=== PATIENT | female | born 1950 ===

== ENCOUNTER 2023-06-29 06:55 | Day surgery (SDC) | payer OTHER ==
[~2023-06-29] VITALS: Ht 160 cm; Wt 63.5 kg
[~2023-06-29 06:55] MED LIST: FOSAMAX70 MG PO; HYZAAR 50-12.51 EACH PO; MULTIPLE VITAM1 EAC2 PO
[2023-06-29] MEDS ORDERED: DUI500 PO (15:45)
[2023-06-29] MEDS ORDERED: OXYC1TAB9 PO (15:45)
== END 2023-06-29 19:35 | disposition home or self-care (01) ==
LOC: CIR.AMB 06:55
PROVIDERS: ATTEND Orthopaedic Surgery Sports Medicine
DX: S86.011A Strain of right Achilles tendon, initial encounter (principal); M76.61 Achilles tendinitis, right leg; I10 Essential (primary) hypertension; Z20.822 Contact with and (suspected) exposure to COVID-19